=== PATIENT | male | born 1975 | race Caucasian/White ===

== ENCOUNTER 2018-05-02 12:49 | Emergency (ER) | payer BC, SELFPAY ==
[2018-05-02 12:52] VITALS: BP 136/103; PULSE 110; RESP 98; TEMP 37.2
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
== END 2018-05-02 14:25 | disposition home or self-care (01) ==
LOC: ER 14:24
PROVIDERS: Emergency Provider Student in an Organized Health Care Education/Training Program
DX: S62.315A Displaced fracture of base of fourth metacarpal bone, left hand, initial encounter for closed fracture (principal); V18.0XXA Pedal cycle driver injured in noncollision transport accident in nontraffic accident, initial encounter; Y93.55 Activity, bike riding
CPT/HCPCS: 26600; 73130; L3809